=== PATIENT | male | born 2000 | race Caucasian/White ===

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

== ENCOUNTER 2018-08-21 21:00 | Emergency (ER) | payer MEDICAID, OTHER ==
[~2018-08-21] VITALS: Ht 180.3 cm; Wt 81.6 kg
[2018-08-21 21:31] VITALS: BP 143/88
--- NOTE | 2018-08-21 21:54 | NUR ---
PT TAKEN TO BED 5
--- NOTE | 2018-08-21 22:31 | NUR ---
Dr. Urias evaluating patient at bedside.
--- NOTE | 2018-08-21 22:31 | NUR ---
PT PRESENTS TO ED WITH LEFT CHEECK PAIN, REDNESS, EDEMA, DRIED CRUSTED AREA. NO DRAINAGE. PT STATES 8/10 PAIN. UKNOWN CAUSE. VSS. POSITIONED IN BED FOR COMFORT. ER MD AWARE. CONTINUE TO MONITOR.
[2018-08-21] MEDS ORDERED: CLINDAMYCIN 600 MG/4 ML VIAL IM ONE (22:45)
[2018-08-21] MEDS ORDERED: SULFAMETH/TRIMETH DS 800/160MG 1 TAB PO ONE (22:45)
--- NOTE | 2018-08-21 22:50 | NUR ---
Patient discharged with v/s stable. Written and verbal after care instructions given and explained. Patient alert, oriented and verbalized understanding of instructions. Ambulatory with steady gait. All questions addressed prior to discharge. ID band removed. Patient advised to follow up with PMD. Rx of Motrin and Bactrim given. Patient educated on indication of medication including possible reaction and side effects. Opportunity to ask questions provided and answered.
[2018-08-21 22:55] VITALS: BP 143/88
== END 2018-08-21 22:55 | disposition home or self-care (01) ==
LOC: MED 21:00
DX: L03.211 Cellulitis of face (principal); Z88.0 Allergy status to penicillin
CPT/HCPCS: 99283